=== PATIENT | female | born 1940 | race Hispanic/Latino ===

== ENCOUNTER 2018-09-09 13:27 | Inpatient (IN) | payer MEDICARE ==
--- NOTE | 2018-09-09 14:12 | Emergency Department Report ---
Blank Doc - Documentation Documentation: 78 y o female PMH of HTN controlled presents with Left sided cp radiating to lft arm but took half of her nitroglycerin and now cp resloved. she denies sob, dizziness. states saw Cardiology yesterday Dr Bianchi Labs ordered, cxr reevaluate
[2018-09-09 14:24] LABS: Basophils # (Auto) 0.1 K/mm3 (0.0-0.1); Basophils % (Auto) 0.9 % (0.0-1.8); Eosinophils # (Auto) 0.1 K/mm3 (0.0-0.4); Hematocrit 40.9 % (30.3-42.9); Hemoglobin 13.5 gm/dl (10.1-14.3); Lymphocytes # (Auto) 2.8 K/mm3 (1.2-5.4); Lymphocytes % (Auto) 49.5 % (13.4-35.0); Mean Corpuscular HGB Conc 33 % (30-34); Mean Corpuscular Volume 82 fl (79-97); Monocytes # (Auto) 0.6 K/mm3 (0.0-0.8); Monocytes % (Auto) 10.7 % (0.0-7.3); Platelet Count 348 K/mm3 (140-440); Red Cell Distribution Width 14.5 % (13.2-15.2)
--- NOTE | 2018-09-09 14:40 | XRay Report ---
ROUTINE CHEST, TWO VIEWS: HISTORY: chest pain. The trachea, heart, mediastinal contour, lung gonzalez and bony thorax are unremarkable. IMPRESSION: Unremarkable chest x-ray.
[2018-09-09 14:45] LABS: BUN/Creatinine Ratio 20; Blood Urea Nitrogen 10 mg/dL (7-17); Calcium 9.8 mg/dL (8.4-10.2); Hemolysis Index 6
[2018-09-09] MEDS ORDERED: NITRO-BID 2% TP ONE ×2 (16:07→17:14)
[2018-09-09] MEDS ORDERED: ASPIRIN PO ONE (16:09)
--- NOTE | 2018-09-09 16:14 | Emergency Department Report ---
HPI - General Chief Complaint: Chest Pain Time Seen by Provider: 09/09/18 14:06 - [facility] HPI: Room 8 The patient is a 78-year-old female presenting with chief complaint chest pain. The patient states today at 13:00 she developed left-sided chest pain while driving. Patient states she is unable to determine the quality of the pain hemostasis been intermittent. The patient states she took a nitroglycerin but is uncertain if it helped. Patient denies shortness of breath, nausea/vomiting or diaphoresis with her chest pain. Patient states she did feel dizziness. Now the patient complains of feeling fatigued. The patient states she had a cardiac catheterization 2-3 years ago that she believes showed a problem with one of the vessels but no intervention was necessary at that time Location: Left chest Duration: Intermittent since 13:00 Quality: Pain Severity: Currently 0/10 Modifying factors: [see above] Context: [see above] Mode of transportation: [not driving] ED Past Medical Hx - Past Medical History Hx Hypertension: Yes Additional medical history: Fibromyalgia - Surgical History Additional Surgical History: Bilateral tubal ligation, lumpectomy (benign), nasal turbinate reduction - Family History Family history: no significant - Social History Smoking Status: Never Smoker Substance Use Type: None (denies illicit drug use), Alcohol (glass of wine qhs) ED Review of Systems ROS: Stated complaint: CHEST PAIN Other details as noted in HPI Constitutional: malaise. denies: diaphoresis Eyes: denies: eye pain ENT: denies: throat pain Respiratory: denies: shortness of breath Cardiovascular: chest pain Endocrine: no symptoms reported Gastrointestinal: denies: nausea, vomiting Genitourinary: denies: dysuria Musculoskeletal: denies: back pain Neurological: denies: headache Physical Exam - Physical Exam Vital Signs: Vital Signs 09/09/18 14:06 Temperature 98.3 F Pulse Rate 67 Respiratory 18 Rate Blood Pressure 173/91 O2 Sat by Pulse 98 Oximetry Physical Exam: GENERAL: The patient is well-developed well-nourished female sitting on stretcher not appearing to be in acute distress. [] HEENT: Normocephalic. Atraumatic. Extraocular motions are intact. Patient has moist mucous membranes. NECK: Supple. Trachea midline CHEST/LUNGS: Clear to auscultation. There is no respiratory distress noted. HEART/CARDIOVASCULAR: Regular. There is no tachycardia. There is no gallop rub or murmur. ABDOMEN: Abdomen is soft, nontender. Patient has normal bowel sounds. There is no abdominal distention. SKIN: There is no rash. There is no edema. There is no diaphoresis. NEURO: The patient is awake, alert, and oriented. The patient is cooperative. The patient has normal speech MUSCULOSKELETAL: There is no evidence of acute injury. ED Course Vital Signs 09/09/18 14:06 Temperature 98.3 F Pulse Rate 67 Respiratory 18 Rate Blood Pressure 173/91 O2 Sat by Pulse 98 Oximetry ED Medical Decision Making - Lab Data Result diagrams: 09/09/18 14:13 09/09/18 14:13 Laboratory Tests 09/09/18 09/09/18 09/09/18 14:13 14:13 15:47 WBC 5.7 RBC 5.00 Hgb 13.5 Hct 40.9 MCV 82 MCH 27 L MCHC 33 RDW 14.5 Plt Count 348 Lymph % (Auto) 49.5 H Yates % (Auto) 10.7 H Eos % (Auto) 2.0 Baso % (Auto) 0.9 Lymph # 2.8 Yates # 0.6 Eos # 0.1 Baso # 0.1 Seg Neutrophils % 36.9 L Seg Neutrophils # 2.1 Sodium 134 L Potassium 3.4 L Chloride 90.5 L Carbon Dioxide 30 Anion Gap 17 BUN 10 Creatinine 0.5 L Estimated GFR > 60 BUN/Creatinine Ratio 20 Glucose 99 Calcium 9.8 Troponin T < 0.010 - EKG Data -: EKG Interpreted by Me EKG shows normal: sinus rhythm Rate: normal - EKG Data When compared to previous EKG there are: previous EKG unavailable Interpretation: nonspecific ST-T wave jennifer (T-wave inversion in lead 3. Flatte thaddeus T-wave in lead aVF) - Radiology Data Radiology results: report reviewed (chest x-ray), image reviewed (chest x-ray) interpreted by me: Chest x-ray-no focal infiltrates, no pneumothorax [facility] [address] [place] [address] XRay Report Signed Patient: EPHRIAM BENNETT MR#: [id number] : 1940 Acct:[id number] Age/Sex: 78 / F ADM Date: 09/09/18 Loc: ED Attending Dr: Ordering Physician: VALE QUINTERO Date of Service: 09/09/18 Procedure(s): XR chest routine 2V Accession Number(s): [id number] cc: VALE QUINTERO Fluoro Time In Minutes: ROUTINE CHEST, TWO VIEWS: HISTORY: chest pain. The trachea, heart, mediastinal contour, lung gonzalez and bony thorax are unremarkable. IMPRESSION: Unremarkable chest x-ray. Transcribed By: TTR Dictated By: SUMMER GOMEZ JR, MD Electronically Authenticated By: SUMMER GOMEZ JR, MD Signed Date/Time: 09/09/181435 DD/ 35 TD/TT: 09/09/181435 - Differential Diagnosis ACS, pericarditis, GERD Critical care attestation.: If time is entered above; I have spent that time in minutes in the direct care of this critically ill patient, excluding procedure time. ED Disposition Clinical Impression: Chest pain, Hypertension Disposition: OP ADMIT IP TO THIS HOSP Is pt being admited?: Yes Does the pt Need Aspirin: Yes Condition: Fair Instructions: Chest Pain (ED), Hypertension (ED) Time of Disposition: 16:21 (hospitalist paged (Dr Donovan))
[2018-09-09] MEDS ORDERED: CATAPRES PO ONE (16:21)
[2018-09-09] MEDS ORDERED: ASPIRIN ONE (17:08)
[2018-09-09] MEDS ORDERED: CATAPRES ONE (17:09)
[2018-09-09] MEDS ORDERED: TYLENOL #3 PO PRN (20:48)
--- NOTE | 2018-09-09 21:38 | Event Note ---
Date: 09/09/18 See dictated history and physical in the reports Chest pain rule out VA Fibromyalgia Lexiscan the morning Cardiology consult
[2018-09-09] MEDS ORDERED: TYLENOL PO PRN (21:46)
[2018-09-09] MEDS ORDERED: SODIUM CHLORIDE FLUSH SYRINGE 10 ML IV PRN (21:46)
[2018-09-09] MEDS ORDERED: PERCOCET 5/325 PO PRN (21:46)
[2018-09-09] MEDS ORDERED: ZOFRAN IV PRN (21:46)
[2018-09-09] MEDS ORDERED: NON-FORMULARY (Omeprazole [Omeprazole] 40 MG) PO SCH (22:00)
[2018-09-09] MEDS ORDERED: K-DUR PO NR (22:08)
[2018-09-09] MEDS: TYLENOL #3 PO SCH (22:12)
--- NOTE | 2018-09-09 22:48 | History and Physical Report ---
CHIEF COMPLAINT: Left-sided chest pain since a.m. HISTORY OF PRESENT ILLNESS: This is a 78-year-old female with a history of fibromyalgia, comes in for left-sided chest pain since 1:00 p.m. She developed chest pain while driving. Chest pain is dull in character, intermittent in nature. The patient apparently took a nitroglycerin, but was not relieved. The patient follows with Dr. Mckenna, body and fender worker in [place]. She follows with him for hypertension, but not any coronary artery disease. The patient had a cardiac catheterization about 3 years ago and was cleared. No stents were placed. No exacerbating or relieving factors. No diaphoresis, no shortness of breath, no precipitating factors or palpitations. PAST MEDICAL HISTORY: Hypertension and fibromyalgia. PAST SURGICAL HISTORY: Bilateral tubal ligation, benign lumpectomy, nasal turbinate reduction. FAMILY HISTORY: No significant family history. SOCIAL HISTORY: Does not smoke. No recreational drugs or alcohol. REVIEW OF SYSTEMS: Significant for retrosternal and precordial chest pain, intermittent in nature since 13 hours. No diaphoresis, no shortness of breath. Review of systems otherwise negative. PHYSICAL EXAMINATION: GENERAL: Elderly female, lying in bed comfortably. VITAL SIGNS: Blood pressure is 163/82, temperature is 97.5, pulse is 66, and respirations 17. HEENT: Unremarkable. Pupils equal and reactive. NECK: Supple, no lymphadenopathy, no thyromegaly. LUNGS: Clear to auscultation and percussion. Good air entry. No chest wall tenderness present. CARDIOVASCULAR: S1, S2 heard. No gallop, no murmur, no rub. Apical impulse in left fifth intercostal space in midclavicular line. ABDOMEN: Soft and benign. Bowel sounds are normal. No inguinal hernias. EXTREMITIES: Good pedal pulses. No pedal edema. CENTRAL NERVOUS SYSTEM: Alert and oriented x 4, nonfocal exam. LABORATORY DATA: Significant for white count of 5700, H and H of 13.5 and 40.9, platelet count of 348,000. Sodium is 134 and potassium is 3.4. BUN and creatinine is 10 and 0.5. EKG shows nonspecific ST-T wave changes. T-wave inversion in lead 3. Heart rate of 78 per minute. Chest x-ray unremarkable. No focal infiltrates. Labs as mentioned, sodium of 134, potassium 3.4. ASSESSMENT AND PLAN: 1. Chest pain, rule out myocardial infarction, chest pain protocol. The patient to get Lexiscan in the morning and Cardiology consult. Also, troponins every 6 x 3. First troponin was negative. 2. Hypertension. Continue amlodipine and hydrochlorothiazide. 3. Hypothyroidism. Continue levothyroxine. 4. Gastroesophageal reflux disease. Continue omeprazole. 5. Depression. Continue duloxetine. 6. Allergic rhinitis. Continue Astelin nose spray. 7. Deep venous thrombosis prophylaxis, Lovenox 40 mg subcutaneous daily. JOB# [id number] VSM/NTS
[2018-09-09] MEDS: NORVASC PO SCH (22:58)
[2018-09-09] MEDS: PROTONIX PO SCH (22:58)
[2018-09-09] MEDS: FLEXERIL PO SCH (22:59)
[2018-09-09] MEDS: DILAUDID IV PRN (22:59)
[2018-09-09] MEDS: PEPCID IV SCH (22:59)
[2018-09-09] MEDS: SODIUM CHLORIDE FLUSH SYRINGE 10 ML IV SCH (23:01)
[2018-09-09] MEDS: NACL 0.9% 1000 ML 1,000 ML IV SCH (23:04)
[2018-09-10] MEDS: LEVSIN SL SL SCH ×5 (01:01→22:10)
[2018-09-10] MEDS: SYNTHROID PO SCH (06:03)
[2018-09-10] MEDS: DILAUDID IV PRN (07:10)
[2018-09-10 07:17] LABS: BUN/Creatinine Ratio 23; Blood Urea Nitrogen 9 mg/dL (7-17); Calcium 8.9 mg/dL (8.4-10.2); Hemolysis Index 10
[2018-09-10] MEDS: CYMBALTA PO SCH ×3 (08:00→22:09)
[2018-09-10] MEDS ORDERED: HCTZ PO SCH (08:00)
[2018-09-10] MEDS ORDERED: K-DUR PO NR ×2 (09:00→19:06)
[2018-09-10] MEDS: KCL 10MEQ/100ML 10 MEQ/100 ML BAG IV SCH ×2 (10:00→11:30)
[2018-09-10] MEDS ORDERED: LOVENOX SUB-Q SCH (10:00)
[2018-09-10] MEDS ORDERED: NON-FORMULARY (Topiramate [Topamax] 50 MG) PO SCH (10:00)
[2018-09-10] MEDS: TYLENOL #3 PO SCH ×2 (10:02→22:09)
[2018-09-10] MEDS: FLEXERIL PO SCH (10:15)
[2018-09-10] MEDS: PROTONIX PO SCH (10:15)
[2018-09-10] MEDS: NORVASC PO SCH ×2 (10:16→22:08)
[2018-09-10] MEDS: LOVENOX SUB-Q SCH (10:16)
[2018-09-10] MEDS: PEPCID IV SCH ×2 (10:16→22:07)
[2018-09-10] MEDS: SODIUM CHLORIDE FLUSH SYRINGE 10 ML IV SCH ×2 (10:17→22:11)
[2018-09-10] MEDS: TOPAMAX PO SCH (10:17)
--- NOTE | 2018-09-10 11:14 | Progress Note ---
Assessment and Plan Assessment and plan: --Atypical chest pain; rule out acute coronary syndrome Continue current cardiac medications, cardiology consultation, possible stress test Once potassium levels are stabilized --Hypokalemia; replace per protocol and monitor levels Check magnesium --Hypothyroidism; continue Synthroid --History of depression; continue antidepression medications --Gastroesophageal reflux disease; Protonix --DVT prophylaxis; Lovenox Closely monitor electrolytes, follow cardiology evaluation and recommendations Possible stress test tomorrow when electrolyte levels are stabilized Plan of care is reviewed with the patient and his nurse History Interval history: Patient seen and examined medical records reviewed Patient was admitted with chest pain Scheduled for stress test, however has severe hypokalemia Stress test rescheduled for tomorrow Patient feels better no new complaints Vital signs noted Hospitalist Physical - Constitutional Vitals: Temp Pulse Resp BP Pulse Ox 97.5 F L 58 L 18 108/60 94 09/10/18 00:37 09/10/18 10:16 09/10/18 10:02 09/10/18 10:16 09/10/18 08:32 General appearance: Present: no acute distress, well-nourished - EENT Eyes: Present: PERRL, EOM intact - Neck Neck: Present: supple, normal ROM - Respiratory Respiratory effort: normal Respiratory: bilateral: diminished, negative: rales, rhonchi, wheezing - Cardiovascular Rhythm: regular Heart Sounds: Present: S1 & S2 - Extremities Extremities: no ischemia, No edema - Abdominal General gastrointestinal: soft, non-tender, non-distended, normal bowel sounds - Integumentary Integumentary: Present: clear, warm - Psychiatric Psychiatric: appropriate mood/affect, cooperative - Neurologic Neurologic: CNII-XII intact, moves all extremities Results - Labs CBC & Chem 7: 09/09/18 14:13 09/10/18 11:59 Labs: Laboratory Last Values WBC 5.7 K/mm3 (4.5-11.0) 09/09/18 14:13 RBC 5.00 M/mm3 (3.65-5.03) 09/09/18 14:13 Hgb 13.5 gm/dl (10.1-14.3) 09/09/18 14:13 Hct 40.9 % (30.3-42.9) 09/09/18 14:13 MCV 82 fl (79-97) 09/09/18 14:13 MCH 27 pg (28-32) L 09/09/18 14:13 MCHC 33 % (30-34) 09/09/18 14:13 RDW 14.5 % (13.2-15.2) 09/09/18 14:13 Plt Count 348 K/mm3 (140-440) 09/09/18 14:13 Lymph % (Auto) 49.5 % (13.4-35.0) H 09/09/18 14:13 Bladen % (Auto) 10.7 % (0.0-7.3) H 09/09/18 14:13 Eos % (Auto) 2.0 % (0.0-4.3) 09/09/18 14:13 Baso % (Auto) 0.9 % (0.0-1.8) 09/09/18 14:13 Lymph # 2.8 K/mm3 (1.2-5.4) 09/09/18 14:13 Bladen # 0.6 K/mm3 (0.0-0.8) 09/09/18 14:13 Eos # 0.1 K/mm3 (0.0-0.4) 09/09/18 14:13 Baso # 0.1 K/mm3 (0.0-0.1) 09/09/18 14:13 Seg Neutrophils % 36.9 % (40.0-70.0) L 09/09/18 14:13 Seg Neutrophils # 2.1 K/mm3 (1.8-7.7) 09/09/18 14:13 Sodium 137 mmol/L (137-145) 09/10/18 06:15 Potassium 2.7 mmol/L (3.6-5.0) L* D 09/10/18 06:15 Chloride 95.6 mmol/L (98-107) L 09/10/18 06:15 Carbon Dioxide 30 mmol/L (22-30) 09/10/18 06:15 Anion Gap 14 mmol/L 09/10/18 06:15 BUN 9 mg/dL (7-17) 09/10/18 06:15 Creatinine 0.4 mg/dL (0.7-1.2) L 09/10/18 06:15 Estimated GFR > 60 ml/min 09/10/18 06:15 BUN/Creatinine Ratio 23 % 09/10/18 06:15 Glucose 87 mg/dL (65-100) 09/10/18 06:15 Hemoglobin A1c 5.3 % (4-6) 09/09/18 21:59 Calcium 8.9 mg/dL (8.4-10.2) 09/10/18 06:15 Troponin T < 0.010 ng/mL (0.00-0.029) 09/10/18 06:15
--- NOTE | 2018-09-10 12:03 | Consultation ---
Addendum entered and electronically signed by KEITH BRIGGS MD 09/10/18 12:19: Atypical chest pain Negative troponin No ischemic ECG findings Normal stress test 09/2017 at [facility] Hypokalemia Thiazide induced Fibromyalgia Chronic edema Recommendations: MPI in am once K > 3.2 Replace K Original Note: History of Present Illness Consult date: 09/10/18 Consult reason: chest pain History of present illness: Patient has a history of Hypertension which is managed by her php architect in [place]. Her latest cardiac evaluation was a stress thallium test done less than a year ago that reports no ischemia and a well preserved ejection fraction by echocardiogram. Patient is admitted with complaints of chest pain. Cardiac consultation requested. Cycled troponins are negative and ECG is benign. The hospitalist team ordered a stress thallium test for today but because she was hyponatremic this was postponed. Medications and Allergies Allergies Allergy/AdvReac Type Severity Reaction Status Date / Time No Known Allergies Allergy Verified 09/09/18 14:06 Home Medications Medication Instructions Recorded Confirmed Last Taken Type Acetaminophen/Codeine [Tylenol 2 tab PO BID 09/09/18 09/09/18 Unknown History /Codeine # 3 tab] Amlodipine Besylate [Norvasc] 5 mg PO BID 09/09/18 09/09/18 Unknown History Azelastine 0.1% (Nf) [Astelin (Nf)] 137 mcg NS BID 09/09/18 09/09/18 Unknown History Cyclobenzaprine [Flexeril] 10 mg PO DAILY 09/09/18 09/09/18 Unknown History DULoxetine [Cymbalta] 30 mg PO TID 09/09/18 09/09/18 Unknown History Hyoscyamine Subl [Levsin Sl 0.125 0.125 mg SL QID 09/09/18 09/09/18 Unknown History TAB] Indomethacin [Indocin] 25 mg PO TID 09/09/18 09/09/18 Unknown History Levothyroxine [Synthroid] 100 mcg PO DAILY 09/09/18 09/09/18 Unknown History Nitroglycerin [Nitrostat] 0.4 mg SL Q5MIN 09/09/18 09/09/18 Unknown History Omeprazole 40 mg PO DAILY 09/09/18 09/09/18 Unknown History Ranitidine HCl [Zantac] 300 mg PO DAILY 09/09/18 09/09/18 Unknown History Topiramate [Topamax] 50 mg PO DAILY 09/09/18 09/09/18 Unknown History hydroCHLOROthiazide [HCTZ] 25 mg PO TID 09/09/18 09/09/18 Unknown History Active Meds: Active Medications Acetaminophen (Tylenol) 650 mg PO Q4H PRN PRN Reason: Pain MILD(1-3)/Fever >100.5/YANES Acetaminophen/Codeine Phosphate (Tylenol #3) 1 tab PO Q6H PRN PRN Reason: Pain, Moderate (4-6) Last Admin: 09/09/18 21:41 Dose: 1 tab Documented by: Acetaminophen/Codeine Phosphate (Tylenol #3) 2 tab PO BID [facility] Last Admin: 09/10/18 10:02 Dose: 2 tab Documented by: Amlodipine Besylate (Norvasc) 5 mg PO BID [facility] Last Admin: 09/10/18 10:16 Dose: 5 mg Documented by: Cyclobenzaprine HCl (Flexeril) 10 mg PO DAILY [facility] Last Admin: 09/10/18 10:15 Dose: 10 mg Documented by: Duloxetine HCl (Cymbalta) 30 mg PO TID [facility] Last Admin: 09/10/18 08:00 Dose: Not Given Documented by: Enoxaparin Sodium (Lovenox) 40 mg SUB-Q QDAY@1000 [facility] Last Admin: 09/10/18 10:16 Dose: 40 mg Documented by: Famotidine (Pepcid) 20 mg IV BID [facility] Last Admin: 09/10/18 10:16 Dose: 20 mg Documented by: Hydromorphone HCl (Dilaudid) 0.5 mg IV Q3H PRN PRN Reason: Pain , Severe (7-10) Last Admin: 09/10/18 07:10 Dose: 0.5 mg Documented by: Hyoscyamine (Levsin Sl) 0.125 mg SL QID [facility] Last Admin: 09/10/18 10:19 Dose: Not Given Documented by: Sodium Chloride (Nacl 0.9% 1000 Ml) 1,000 mls @ 75 mls/hr IV DIRECT [facility] Last Admin: 09/09/18 23:04 Dose: 75 mls/hr Documented by: Levothyroxine Sodium (Synthroid) 100 mcg PO DAILY@0600 [facility] Last Admin: 09/10/18 06:03 Dose: 100 mcg Documented by: Ondansetron HCl (Zofran) 4 mg IV Q8H PRN PRN Reason: Nausea And Vomiting Oxycodone/Acetaminophen (Percocet 5/325) 1 tab PO Q6H PRN PRN Reason: Pain, Moderate (4-6) Pantoprazole Sodium (Protonix) 40 mg PO DAILY [facility] Last Admin: 09/10/18 10:15 Dose: 40 mg Documented by: Sodium Chloride (Sodium Chloride Flush Syringe 10 Ml) 10 ml IV BID [facility] Last Admin: 09/10/18 10:17 Dose: 10 ml Documented by: Sodium Chloride (Sodium Chloride Flush Syringe 10 Ml) 10 ml IV PRN PRN PRN Reason: LINE FLUSH Topiramate (Topamax) 50 mg PO DAILY [facility] Last Admin: 09/10/18 10:17 Dose: 50 mg Documented by: Physical Examination Vital Signs Temp Pulse Resp BP Pulse Ox 98.3 F 67 18 173/91 98 09/09/18 14:06 09/09/18 14:06 09/09/18 14:06 09/09/18 14:06 09/09/18 14:06 General appearance: no acute distress HEENT: Positive: PERRL Neck: Positive: trachea midline Cardiac: Positive: Reg Rate and Rhythm Lungs: Positive: Decreased Breath Sounds Neuro: Positive: Grossly Intact Extremities: Absent: edema Results 09/09/18 14:13 09/10/18 06:15 CBC 09/09/18 Range/Units 14:13 WBC 5.7 (4.5-11.0) K/mm3 RBC 5.00 (3.65-5.03) M/mm3 Hgb 13.5 (10.1-14.3) gm/dl Hct 40.9 (30.3-42.9) % Plt Count 348 (140-440) K/mm3 Lymph # 2.8 (1.2-5.4) K/mm3 Maverick # 0.6 (0.0-0.8) K/mm3 Eos # 0.1 (0.0-0.4) K/mm3 Baso # 0.1 (0.0-0.1) K/mm3 Comprehensive Metabolic Panel 09/09/18 09/10/18 Range/Units 14:13 06:15 Sodium 134 L 137 (137-145) mmol/L Potassium 3.4 L 2.7 L* D (3.6-5.0) mmol/L Chloride 90.5 L 95.6 L (98-107) mmol/L Carbon Dioxide 30 30 (22-30) mmol/L BUN 10 9 (7-17) mg/dL Creatinine 0.5 L 0.4 L (0.7-1.2) mg/dL Glucose 99 87 (65-100) mg/dL Calcium 9.8 8.9 (8.4-10.2) mg/dL Assessment and Plan Chest pain Hypertension Hypokalemia Stress thallium test postponed due to hypokalemia. We will reschedule for tomorrow.
[2018-09-10] MEDS: NACL 0.9% 1000 ML 1,000 ML IV SCH (15:11)
[2018-09-10] MEDS ORDERED: K-DUR PO ONE (20:34)
[2018-09-11] MEDS: SYNTHROID PO SCH ×2 (04:52→05:56)
[2018-09-11] MEDS: NACL 0.9% 1000 ML 1,000 ML IV SCH (04:52)
[2018-09-11 05:12] LABS: Basophils % (Auto) 0.7 % (0.0-1.8); Eosinophils # (Auto) 0.1 K/mm3 (0.0-0.4); Eosinophils % (Auto) 2.5 % (0.0-4.3); Hematocrit 35.4 % (30.3-42.9); Hemoglobin 11.8 gm/dl (10.1-14.3); Lymphocytes % (Auto) 44.4 % (13.4-35.0); Mean Corpuscular HGB Conc 33 % (30-34); Mean Corpuscular Volume 82 fl (79-97); Monocytes # (Auto) 0.4 K/mm3 (0.0-0.8); Monocytes % (Auto) 9.8 % (0.0-7.3); Platelet Count 316 K/mm3 (140-440); Red Blood Count 4.35 M/mm3 (3.65-5.03); Red Cell Distribution Width 14.5 % (13.2-15.2)
[2018-09-11 05:46] LABS: BUN/Creatinine Ratio 16; Blood Urea Nitrogen 8 mg/dL (7-17); Calcium 8.4 mg/dL (8.4-10.2); Hemolysis Index 8
[2018-09-11] MEDS ORDERED: LEXISCAN IV ONE ×2 (08:04→08:25)
--- NOTE | 2018-09-11 10:47 | Progress Note ---
Assessment and Plan Atypical chest pain Negative troponin No ischemic ECG findings Normal stress test 09/2017 at [facility] Hypokalemia Thiazide induced Fibromyalgia Chronic edema MPI today is normal, LVEF 77% Echo 09/2017 - normal LVEF Recommendations: No further cardiac work-up is needed Subjective Date of service: 09/11/18 Principal diagnosis: Chest Pain Interval history: No cardiac events overnight Objective Vital Signs Temp Pulse Resp BP BP Pulse Ox 09/11/18 01:00 75 09/10/18 23:46 98.7 F 73 18 126/59 94 09/10/18 22:00 20 09/10/18 20:27 98.3 F 73 17 112/61 93 09/10/18 20:08 97 09/10/18 18:49 97.6 F 72 16 109/62 94 09/10/18 12:00 98 F 67 18 124/63 96 09/10/18 11:59 72 93 09/10/18 11:02 18 - Physical Examination HEENT: Positive: PERRL Neck: Positive: trachea midline Cardiac: Positive: Reg Rate and Rhythm Lungs: Positive: Normal Exam Neuro: Positive: Grossly Intact Extremities: Absent: edema - Labs and Meds CBC 09/11/18 Range/Units 04:55 WBC 4.6 (4.5-11.0) K/mm3 RBC 4.35 (3.65-5.03) M/mm3 Hgb 11.8 (10.1-14.3) gm/dl Hct 35.4 (30.3-42.9) % Plt Count 316 (140-440) K/mm3 Lymph # 2.0 (1.2-5.4) K/mm3 Davison # 0.4 (0.0-0.8) K/mm3 Eos # 0.1 (0.0-0.4) K/mm3 Baso # 0.0 (0.0-0.1) K/mm3 Comprehensive Metabolic Panel 09/10/18 09/11/18 Range/Units 11:59 04:55 Sodium 139 (137-145) mmol/L Potassium 3.1 L 3.6 (3.6-5.0) mmol/L Chloride 104.9 (98-107) mmol/L Carbon Dioxide 25 (22-30) mmol/L BUN 8 (7-17) mg/dL Creatinine 0.5 L (0.7-1.2) mg/dL Glucose 95 (65-100) mg/dL Calcium 8.4 (8.4-10.2) mg/dL
[2018-09-11] MEDS: LEVSIN SL SL SCH (11:47)
[2018-09-11] MEDS: PEPCID IV SCH (11:48)
[2018-09-11] MEDS: TYLENOL #3 PO SCH (11:48)
[2018-09-11] MEDS: PROTONIX PO SCH (11:49)
[2018-09-11] MEDS: LOVENOX SUB-Q SCH (11:49)
[2018-09-11] MEDS: NORVASC PO SCH (11:49)
[2018-09-11] MEDS: TOPAMAX PO SCH (11:51)
[2018-09-11] MEDS: SODIUM CHLORIDE FLUSH SYRINGE 10 ML IV SCH (11:52)
--- NOTE | 2018-09-11 11:54 | Treadmill Report ---
INDICATION: Chest pain. ORDERING PHYSICIAN: Saul Cartagena MD FINDINGS: There is no scintigraphic evidence of myocardial ischemia. The left ventricle is normal in size and systolic function, left ventricular ejection fraction is measured at 77%. Normal wall motion and wall thickening is noted on gated imaging. CONCLUSION: Normal perfusion scan. JOB# [id number] ALEXIS/CH[place]
[2018-09-11] MEDS: FLEXERIL PO SCH (12:02)
[2018-09-11] MEDS: CYMBALTA PO SCH (12:03)
--- NOTE | 2018-09-11 12:51 | Discharge Summary ---
Providers - Providers Date of Admission: 09/09/18 16:25 Date of discharge: 09/11/18 Attending physician: ESTELITA KAUFFMAN Primary care physician: SENIOR RELATIONSHIP MANAGER Hospitalization Reason for admission: Chest pain Condition: Stable Pertinent studies: Stress test: normal study, normal EF Hospital course: Patient is admitted with chest pain evaluated by cardiology,had stress test, negative. Today patient is comfortable,no new symptoms,vital signs stable Physical exam is unremarkable; Stable at discharge. Discharge diagnosis: --Atypical chest pain; rule out acute coronary syndrome Continue current cardiac medications, cardiology consultation, stress test, negative --Hypokalemia; replace per protocol and monitor levels Check magnesium --Hypothyroidism; continue Synthroid --History of depression; continue antidepression medications --Gastroesophageal reflux disease; Protonix Disposition: TO HOME OR SELFCARE Time spent for discharge: 32 min Core Measure Documentation - Palliative Care Palliative Care/ Comfort Measures: Not Applicable - Core Measures Any of the following diagnoses?: none Exam - Constitutional Vitals: Temp Pulse Resp BP Pulse Ox 98.7 F 75 20 126/59 94 09/10/18 23:46 09/11/18 01:00 09/11/18 11:48 09/10/18 23:46 09/10/18 23:46 General appearance: Present: no acute distress, well-nourished - EENT Eyes: Present: PERRL, EOM intact - Neck Neck: Present: supple, normal ROM - Respiratory Respiratory effort: normal Respiratory: bilateral: diminished, negative: rales, rhonchi, wheezing - Cardiovascular Rhythm: regular Heart Sounds: Present: S1 & S2 - Extremities Extremities: no ischemia, No edema - Abdominal General gastrointestinal: Present: soft, non-tender, non-distended, normal bowel sounds - Integumentary Integumentary: Present: clear, warm - Musculoskeletal Musculoskeletal: strength equal bilaterally - Psychiatric Psychiatric: appropriate mood/affect, cooperative - Neurologic Neurologic: CNII-XII intact, moves all extremities Plan Activity: advance as tolerated Diet: low salt Additional Instructions: If you have Chest pain shortness or shortness of breath contact MD or go to emergency room Follow up with: PRIMARY CARE, [Primary Care Provider] - 7 Days KEITH BRIGGS MD [Staff Physician] - 7 Days Prescriptions: Pantoprazole [Protonix TAB] 40 mg PO DAILY #30 tablet
[2018-09-11 13:03] VITALS: BP 119/86
== END 2018-09-11 15:51 | disposition home or self-care (01) | DRG 641 ==
LOC: ED 13:27 → 4A 16:25
PROVIDERS: ADMIT Internal Medicine; ATTEND Internal Medicine
DX: E87.6 Hypokalemia (principal); R07.89 Other chest pain; E87.1 Hypo-osmolality and hyponatremia; K21.9 Gastro-esophageal reflux disease without esophagitis; I10 Essential (primary) hypertension; E03.9 Hypothyroidism, unspecified; F32.9 Major depressive disorder, single episode, unspecified; J30.9 Allergic rhinitis, unspecified; T50.2X5A Adverse effect of carbonic-anhydrase inhibitors, benzothiadiazides and other diuretics, initial encounter; M79.7 Fibromyalgia; Y92.098 Other place in other non-institutional residence as the place of occurrence of the external cause; Z98.51 Tubal ligation status; Z72.89 Other problems related to lifestyle
CPT/HCPCS: 36415; 71046; 78452; 80048; 83036; 83735; 84132; 84484; 85025; 93005; 93010; 93017; G0378; A9502; J1170; J1650; J2785; J3480; J7030